=== PATIENT | male | born 1990 | race Caucasian/White ===

== ENCOUNTER 2024-10-26 20:42 | Emergency (ER) | payer SELFPAY ==
[2024-10-26 20:43] VITALS: BP 148/86
--- NOTE | 2024-10-26 21:49 | ED.GENMED ---
History of Present Illness
General
Chief Complaint: Skin Surface Trauma
Time Seen by Provider: 10/26/24 21:05
History of Present Illness
History of Present Illness:
33-year-old male presents the emergency department for evaluation of right facial laceration sustained when a bottle fell on him at work. Bleeding is controlled pressure. Last tetanus was 2021.
Past History
Past History
ED Past Medical History: None
ED Past Surgical History: None
Social History
Tobacco: Non-smoker
Alcohol: Occasional
Personal: Single
Living: with family
Employment: Employed
Review of Systems
Review of Systems
Allergies reviewed?: Yes
All Other Systems: ROS reviewed and negative except as documented in HPI and ROS
Phy Exam
Physical Exam
Physical Exam:
GEN: Well appearing, NAD, WDWN
HEENT: Oral mucosa moist, no scleral icterus. 2 cm vertical laceration to the right upper lip above the vermilion border, no dental injury
Cardiac: Regular rate
Lung: No respiratory distress, no tachypnea
MSK: No gross deformity or injuries
Skin: Good color, no pallor or jaundice, no rashes
Neuro: AO x3, moves all extremities freely
Psych: Calm, cooperative
Course
Vital Signs
Initial and Last Documented VS:
Initial Vital Signs
Temp Pulse Resp BP Pulse Ox
98.3 F 88 18 148/86 98
10/26/24 20:43 10/26/24 20:43 10/26/24 20:43 10/26/24 20:43 10/26/24 20:43
Last Documented Vital Signs
Temp Pulse Resp BP Pulse Ox
98.3 F 88 18 148/86 98
10/26/24 20:43 10/26/24 20:43 10/26/24 20:43 10/26/24 20:43 10/26/24 21:51
Procedures
Laceration Closure
Right Upper Lip:
Status of Wound: clean
Size of Wound in cm: 2
Description of Wound Edges: sharp
Preparation: cleaned with saline
Anesthesia: 1% Lidocaine with epi and Digital-Regional (R infra orbital block)
Wound exploration: explored to base- no FB
Type of Closure: single layer closure
Skin Closure Material: 6-0 prolene
Number of sutures: 4
MDM/Problems Addressed
MDM/Problems Addressed:
Laceration repaired, no intraoral lesions, no indication for antibiotics
*Pulse Oximetry
SaO2: 98
Oxygen Mode of Delivery: Room air
Patient hypoxic: no
*Critical Care Note
Total Time (30-74mins, 75-104mins- exclusive of procedures): Not Applicable
ED Attending Note
-
Portions of this chart may have been created with voice recognition software.� Occasional wrong word or��sound alike� substitutions may have occurred due to the inherent limitations of voice recognition software.
Discharge Plan
Departure
Patient Disposition: Home (Routine Discharge)
Date of Disposition: 10/26/24
Time of Disposition: 21:50
Patient with high blood pressure during this ER visit?: No
Discharge Problem:
Laceration of lip
Instructions: Laceration Repair With Stitches (DC)
Referrals:
NONE,* [Family Provider, Internal Medicine]
Activity Restrictions/Additional Instructions:
Keep the wound dry for 24 hours
Wash gently with soap and water thereafter each day
See urgent care or primary care for suture removal in 7 days
Interventions
Interventions:
*Risk Screen - Suicide Last Done: 10/26/24 20:45
*General Assessment Last Done: 10/26/24 20:45
*Neglect/Abuse Screening Last Done: 10/26/24 20:45
*ED- Fall Risk Assessment Last Done: 10/26/24 22:00
*ED COVID-19 Vaccine History Last Done: 10/26/24 20:45
*Nursing Disposition Last Done: 10/26/24 22:00
ED-Skin Assessment Last Done: 10/26/24 21:57
Discharge Date and Time
Discharge Date/Time: 10/26/24 22:01
Print Language: ARMENIAN
== END 2024-10-26 22:01 | disposition home or self-care (01) ==
LOC: EMR 20:42
PROVIDERS: EMERGENCY PHYSICIAN Student in an Organized Health Care Education/Training Program
DX: S01.511A Laceration without foreign body of lip, initial encounter (principal); W25.XXXA Contact with sharp glass, initial encounter
CPT/HCPCS: 99282; 12011